=== PATIENT | male | born 1945 | race Two or more races ===

== ENCOUNTER → 2016-05-18 | Outpatient (CLI) | payer MEDICARE ==
--- NOTE | 2016-05-18 13:44 | RAD ---
Left lower extremity venous ultrasound, 05/18/2016: History: DVT, patient on blood thinners Duplex evaluation of the major deep veins in the left lower extremity was performed including grayscale, color-flow and spectral Doppler analysis. No previous studies are available at this time for comparison purposes. The left common femoral vein and the femoral vein in the upper left thigh are widely patent. There is occlusive thrombus in the femoral vein in the distal left thigh extending into the popliteal vein. Patent posterior tibial and peroneal veins are evident in the left calf. IMPRESSION: Occlusive thrombus in the left popliteal vein and in the inferior aspect of the left femoral vein. Presumably prior studies were performed elsewhere, and correlation with prior exams is suggested to determine if this represents interval improvement or progression of clot.
== END | disposition home or self-care (01) ==
LOC: US 12:41
PROVIDERS: ATTEND Internal Medicine
DX: I82.432 Acute embolism and thrombosis of left popliteal vein (principal)
CPT/HCPCS: 93971

== ENCOUNTER → 2016-06-20 | Outpatient (CLI) | payer MEDICARE ==
--- NOTE | 2016-06-20 15:29 | RAD ---
Left lower extremity venous ultrasound, 06/20/2016: History: Follow-up left DVT Duplex evaluation of the deep veins in the left lower extremity was performed including grayscale, color-flow and spectral Doppler analysis. The left common femoral and the the superficial femoral vein in the mid and upper portions of the left thigh are patent. In the distal left side there is occlusive thrombus in the femoral vein extending into the popliteal vein. This appears to be unchanged since 05/18/2016. Patent posterior tibial and peroneal veins are present in the left calf. IMPRESSION: Unchanged occlusive thrombus in the left popliteal vein and the inferior aspect of the left femoral vein.
== END | disposition home or self-care (01) ==
LOC: US 13:53
PROVIDERS: ATTEND Internal Medicine
DX: I80.202 Phlebitis and thrombophlebitis of unspecified deep vessels of left lower extremity (principal)
CPT/HCPCS: 93971

== ENCOUNTER 2021-05-27 14:10 | Emergency (ER) | payer MEDICARE ==
[~2021-05-27] VITALS: Ht 175.3 cm; Wt 82.2 kg
[2021-05-27] MEDS ORDERED: IV NORMAL SALINE 1000ML BAG 1,000 ML IV ONE (14:45)
[2021-05-27] MEDS ORDERED: MECLIZINE HCL 12.5 MG TABLET. PO ONE (14:45)
--- NOTE | 2021-05-27 14:47 | EKG ---
[facility] [address] [place] [id number] Test Date: 2021-05-27 Test Time: 14:25:42 Pat Name: GEENA TERRY Department: Room: Gender: M Physician Practice Manager: : [id number] Requested By: ALY BULLOCK Order Number: [id number] Reading MD: Rickie Ontiveros MD Measurements Intervals [place] Rate: 71 P: 235 MS: 190 QRS: 36 QRSD: 76 T: 54 QT: 360 QTc: 396 Interpretive Statements SINUS RHYTHM Electronically Signed On 05-28-2021 17:38:36 CDT by Rickie Ontiveros MD
[2021-05-27 14:50] LABS: BASO # 0.1 x10^3/uL (0.0-0.2); BASO % 1 % (0-3); EOS # 0.4 x10^3/uL (0.0-0.7); EOS % 4 % (0-3); HEMOGLOBIN 15.7 g/dL (13.0-17.5); LYMPH # 2.1 x10^3/uL (1.0-4.8); LYMPH % 21 % (24-48); MEAN CORPUSCULAR HEMOGLOBIN 30 pg (25-35); MEAN CORPUSCULAR HGB CONC 33 g/dL (31-37); MEAN CORPUSCULAR VOLUME 89 fL (79-100); MONO # 0.7 x10^3/uL (0.0-1.1); MONO % 7 % (0-9); NEUT # 6.9 x10^3/uL (1.8-7.7); NEUT % 68 % (31-73); PLATELET COUNT 303 x10^3/uL (140-400); WHITE BLOOD COUNT 10.1 x10^3/uL (4.0-11.0)
--- NOTE | 2021-05-27 14:52 | PHYS DOC ---
General Adult EDM: Chief Complaint: DIZZY/LIGHT HEADED HPI: HPI: Patient is a 75-year-old male who presents to the emergency department today for lightheadedness. Patient reports that he has had this lightheadedness Monday. At that time he saw his primary care provider. He reports that he also saw his primary care provider yesterday and was discharged with azithromycin. Patient reports that the lightheadedness occurs only with position changes and head movements. He reports that he has had some nasal congestion and drainage as well as ear pressure and tinnitus. Patient has a history of hyperlipidemia, diabetes and pulmonary embolism on Xarelto. Patient denies headache, nausea, vomiting, fevers, chest pain, shortness of breath. Review of Systems: Review of Systems: Constitutional: See HPI HENT: See HPI Respiratory: See HPI Cardiovascular: See HPI GI: D see HPI Neurologic: See HPI] Heart Score: C/O Chest Pain: No Risk Factors: Risk Factors: DM, Current or recent (<one month) smoker, HTN, HLP, family history of CAD, obesity. Risk Scores: Score 0 - 3: 2.5% MACE over next 6 weeks - Discharge Home Score 4 - 6: 20.3% MACE over next 6 weeks - Admit for Clinical Observation Score 7 - 10: 72.7% MACE over next 6 weeks - Early Invasive Strategies Current Medications: Current Medications Medications (Trade) Dose Ordered Sig/Raul Start Time Stop Time Status Last Admin Dose Admin Meclizine HCl (Antivert) 25 mg 1X ONCE 05/27/21 14:45 05/27/21 14:46 DC Sodium Chloride 1,000 ml @ 1,000 mls/hr 1X ONCE 05/27/21 14:45 05/27/21 15:44 Allergies: Allergies: Allergies Coded Allergies Type Severity Reaction Last Updated Verified No Known Drug Allergies 05/27/21 No Physical Exam: PE: Constitutional: Well developed, well nourished, no acute distress, non-toxic appearance. [] HENT: Normocephalic, atraumatic, bilateral external ears normal, tube in right ear, no erythema or excessive cerumen noted to bilateral internal ears, oropharynx moist, no oral exudates, nose normal. [] Eyes: PERRL, no nystagmus, 4 mm bilaterally, EOMI, conjunctiva normal, no discharge. [] Neck: Normal range of motion, no tenderness, supple, no stridor. [] Cardiovascular:Heart rate regular rhythm, no murmur [] Lungs & Thorax: Bilateral breath sounds clear to auscultation [] Abdomen: Bowel sounds normal, soft, no tenderness, no masses, no pulsatile masses. [] Skin: Warm, dry, no erythema, no rash. [] Back: Normal range of motion Extremities: No tenderness, no cyanosis, no clubbing, ROM intact, no edema. [] Neurologic: Alert and oriented X 3, normal motor function, normal sensory function, no focal deficits noted. [] Psychologic: Affect normal, judgement normal, mood normal. [] Current Patient Data: Labs: Laboratory Tests Test 05/27/21 14:32 05/27/21 15:15 White Blood Count 10.1 x10^3/uL Red Blood Count 5.30 x10^6/uL Hemoglobin 15.7 g/dL Hematocrit 47.0 % Mean Corpuscular Volume 89 fL Mean Corpuscular Hemoglobin 30 pg Mean Corpuscular Hemoglobin Concent 33 g/dL Red Cell Distribution Width 14.0 % Platelet Count 303 x10^3/uL Neutrophils (%) (Auto) 68 % Lymphocytes (%) (Auto) 21 % Monocytes (%) (Auto) 7 % Eosinophils (%) (Auto) 4 % Basophils (%) (Auto) 1 % Neutrophils # (Auto) 6.9 x10^3/uL Lymphocytes # (Auto) 2.1 x10^3/uL Monocytes # (Auto) 0.7 x10^3/uL Eosinophils # (Auto) 0.4 x10^3/uL Basophils # (Auto) 0.1 x10^3/uL Prothrombin Time 17.8 SEC Prothromb Time International Ratio 1.5 Activated Partial Thromboplast Time 43 SEC Sodium Level 137 mmol/L Potassium Level 4.5 mmol/L Chloride Level 101 mmol/L Carbon Dioxide Level 29 mmol/L Anion Gap 7 Blood Urea Nitrogen 24 mg/dL Creatinine 1.4 mg/dL Estimated GFR (Cockcroft-Gault) 49.3 BUN/Creatinine Ratio 17 Glucose Level 117 mg/dL Calcium Level 9.4 mg/dL Total Bilirubin 0.4 mg/dL Aspartate Amino Transf (AST/SGOT) 18 U/L Alanine Aminotransferase (ALT/SGPT) 20 U/L Alkaline Phosphatase 69 U/L Troponin I High Sensitivity 5 ng/L Total Protein 7.4 g/dL Albumin 4.3 g/dL Albumin/Globulin Ratio 1.4 SARS-CoV-2 Antigen (Rapid) Negative Current Medications Medications (Trade) Dose Ordered Sig/Raul Route PRN Reason Start Time Stop Time Status Last Admin Dose Admin Sodium Chloride 1,000 ml @ 1,000 mls/hr 1X ONCE IV 05/27/21 14:45 05/27/21 15:44 DC 05/27/21 14:56 Meclizine HCl (Antivert) 25 mg 1X ONCE PO 05/27/21 14:45 05/27/21 14:46 DC 05/27/21 14:56 Iohexol (Omnipaque 350 Mg/ml) 90 ml 1X ONCE IV 05/27/21 15:45 05/27/21 15:47 DC 05/27/21 16:12 Info (CONTRAST GIVEN -- Rx MONITORING) 1 each PRN DAILY PRN MC SEE COMMENTS 05/27/21 16:00 05/29/21 15:59 EKG: EKG: EKG performed by ER staff at 1425 shows sinus rhythm with a rate of 71, no STEMI read by Dr. Carbajal at 1427 [] Radiology/Procedures: Radiology/Procedures: []PROCEDURE: CT HEAD WO CONTRAST Exam: CT head INDICATION: Dizziness TECHNIQUE: Sequential axial images through the head were obtained without the administration of IV contrast. Exposure: One or more of the following in the visualized dose reduction techniques were utilized for this examination: 1. Automated exposure control 2. Adjustment of the MA and/or KV according to patient size 3. Use of iterative of reconstructive technique Comparisons: None FINDINGS: No focal parenchymal lesion or hemorrhage is identified. There is no midline shift or sulcal effacement. No acute vascular territory infarction is identified. Hudson-white distinction is preserved. The ventricular system is within normal limits without compression hydrocephalus. The basal cisterns are well maintained. The visualized portions of the paranasal sinuses and mastoid air cells are well- pneumatized. No acute fractures. IMPRESSION: No acute intracranial abnormality. Electronically signed by: Nadia Max MD (05/27/2021 4:01 PM) [facility] DICTATED and SIGNED BY: NADIA MAX MD DATE: 05/27/21 1549 PROCEDURE: CT ANGIOGRAPHY CHEST Exam Date: 05/27/2021 4:11 PM CTA CHEST Indication: Reason: dizziness, PE hx / Spl. Instructions: OMNI 350 INJ. 90 MLS / History: . TECHNIQUE: CT angiogram of the chest was performed following the administration of nonionic intravenous contrast for evaluation of pulmonary embolus. 3D MIPs were created and reviewed on an independent workstation to assist in diagnosis and clinical management. One or more of the following dose reduction techniques were utilized: *Automated exposure control (AEC) *Adjustment of mA and/or kV according to patient size *Use of iterative reconstruction technique *CT scan done according to ALARA, or ALARA/IMAGE GENTLY FINDINGS: There is slightly suboptimal opacification of the pulmonary arteries due to bolus timing. No definite central intravascular filling defects are appreciated. There is no definite evidence for central pulmonary embolus. The aorta is normal in caliber without evidence for dissection. Aortic calcifications are present. The heart is normal in size without pericardial effusion. Coronary artery calcifications are present. The visualized thyroid gland is within normal limits. No lymphadenopathy is seen. Patchy groundglass and reticular markings in the lungs likely represent subsegmental atelectasis, most prominent in the left upper lobe. There is a 2-3 mm noncalcified subpleural nodule at the periphery of the left lower lobe on image 93 series 3. Calcified granulomas in the lungs. The central airways are patent. There is no focal consolidation, pleural effusion or pneumothorax. Images of the upper abdomen demonstrate no focal abnormality. Degenerative changes are seen in the spine. IMPRESSION: Slightly suboptimal opacification of the pulmonary arteries due to bolus timing. No definite evidence for central pulmonary embolus, allowing for the limitations of the exam. Patchy subsegmental atelectasis in the lungs bilaterally. 2-3 mm noncalcified lung nodule on the left. According to the 2017 Fleischner Society Guidelines for Management of Incidental Pulmonary Nodules Detected on CT, for low risk patients (minimal or absent history of smoking or other known risk factors), non-calcified solid nodules less than or equal to 6 mm in diameter do not require routine follow up. If risk factors exist or the nodule has an upper lobe location, a follow up CT is optional in 12 months. If unchanged at that time, no further follow up is needed. Electronically signed by: Ander Colin MD (05/27/2021 4:32 PM) [facility] DICTATED and SIGNED BY: ANDER COLIN MD DATE: 05/27/21 1616 Course & Med Decision Making: Course & Med Decision Making Pertinent Labs and Imaging studies reviewed. (See chart for details) [] Patient presents to the emergency department today for lightheadedness with position changes and head movements. Patient had a negative head impulse test and does not have any nystagmus. Patient is reporting nasal congestion and tinnitus, he does have an ear tube in his right ear that has been in place for 9 years he reports. Work-up in the ER consisted of blood work including troponin, EKG, CT imaging of head due to his dizziness and blood thinner use. Patient may be experiencing orthostatic hypotension and is treated with IV fluids and effort. Static vital signs were obtained in the emergency department and these were negative. Blood work was unremarkable, troponin was 5. CT imaging of head showed no acute findings. CT angio of chest was performed as patient is reporting dizziness and has a PE history and this was negative for any pulmonary embolism. Following treatment in the emergency department with IV fluids and Antivert, patient reports that his dizziness has resolved. Patient was road tested in the emergency department was able to bear weight and ambulate with a steady gait without any dizziness. Patient will be discharged home with Antivert and advised to increase fluids. He will be given referral information for an ENT. I discussed with patient all findings and diagnostic testing as wel l as the need to follow-up with PCP for further evaluation and treatment or return to the ER if any new or worsening symptoms. Strict return precautions were also discussed at length. Patient voiced understanding and agreement with the plan. Patient is hemodynamically stable at the time of disposition. Letty Disclaimer: Letty Disclaimer: This electronic medical record was generated, in whole or in part, using a voice recognition dictation system. Departure Departure Impression: Primary Impression: Vertigo Disposition: 01 HOME / SELF CARE / HOMELESS Condition: GOOD Referrals: AL STEVENSON MD (PCP) Patient Instructions: Vertigo Additional Instructions: You are seen in this emergency department today for dizziness. You are likely experiencing symptoms of vertigo which is treated with Antivert. Please take this as directed. Increase your fluids as dehydration is a common cause of dizziness. Go home and rest. Follow-up with your primary care provider tomorrow regarding your ER visit. Your vertigo may be related to your ear problems and you will need to follow-up with an ENT regarding the ear tube that is in your right ear. Please follow-up with the ENT that was attached to your discharge paperwork. Return to the emergency department if you develop dizziness, syncope, intractable nausea or vomiting, chest pain, shortness of breath, severe headache, confusion, vision changes, speech changes, inability to walk, poor coordination or any new worsening concerns. Scripts Meclizine Hcl (MECLIZINE HCL) 25 Mg Tablet 1 TAB PO PRN TID for 7 Days, #21 TAB 0 Refills Prov: ALY BULLOCK APRN 05/27/21 ALY BULLOCK APRN May 27, 2021 14:52
[2021-05-27 15:01] LABS: CALCIUM 9.4 mg/dL (8.5-10.1); CREATININE 1.4 mg/dL (0.7-1.3); GFR 49.3; POTASSIUM 4.5 mmol/L (3.5-5.1)
[2021-05-27 15:04] LABS: PROTHROMBIN TIME PATIENT 17.8 SEC (11.7-14.0)
[2021-05-27 15:08] LABS: ALBUMIN 4.3 g/dL (3.4-5.0); ALBUMIN/GLOBULIN RATIO 1.4 (1.0-1.7); TOTAL BILIRUBIN 0.4 mg/dL (0.2-1.0); TOTAL PROTEIN 7.4 g/dL (6.4-8.2)
[2021-05-27] MEDS ORDERED: IOHEXOL 350 MG/ML 100 ML VIAL. IV ONE (15:45)
[2021-05-27] MEDS ORDERED: CONTRAST GIVEN. MC PRN (16:00)
--- NOTE | 2021-05-27 16:04 | RAD ---
Exam: CT head INDICATION: Dizziness TECHNIQUE: Sequential axial images through the head were obtained without the administration of IV co ntrast. Exposure: One or more of the following in the visualized dose reduction techniques were utilized for this examination: 1. Automated exposure control 2. Adjustment of the MA and/or KV according to patient size 3. Use of iterative of reconstructive technique Comparisons: None FINDINGS: No focal parenchymal lesion or hemorrhage is identified. There is no midline shift or sulcal effaceme nt. No acute vascular territory infarction is identified. Hudson-white distinction is preserved. The ventricular system is within normal limits without compression hydrocephalus. The basal cisterns are well maintained. The visualized portions of the paranasal sinuses and mastoid air cells are well-pneumatized. No acute fractures. IMPRESSION: No acute intracranial abnormality. Electronically signed by: Nadia Montiel MD (05/27/2021 4:01 PM) [facility]
--- NOTE | 2021-05-27 16:34 | RAD ---
Exam Date: 05/27/2021 4:11 PM CTA CHEST Indication: Reason: dizziness, PE hx / Spl. Instructions: OMNI 350 INJ. 90 MLS / History: . TECHNIQUE: CT angiogram of the chest was performed following the administration of nonionic intrave nous contrast for evaluation of pulmonary embolus. 3D MIPs were created and reviewed on an [employer] workstation to assist in diagnosis and clinical management. One or more of the following dose red uction techniques were utilized: *Automated exposure control (AEC) *Adjustment of mA and/or kV according to patient size *Use of iterative reconstruction technique *CT scan done according to ALARA, or ALARA/IMAGE GENTLY FINDINGS: There is slightly suboptimal opacification of the pulmonary arteries due to bolus timing. No definit e central intravascular filling defects are appreciated. There is no definite evidence for central p ulmonary embolus. The aorta is normal in caliber without evidence for dissection. Aortic calcifications are present. The heart is normal in size without pericardial effusion. Coronary artery calcifications are present . The visualized thyroid gland is within normal limits. No lymphadenopathy is seen. Patchy groundglass and reticular markings in the lungs likely represent subsegmental atelectasis, mos t prominent in the left upper lobe. There is a 2-3 mm noncalcified subpleural nodule at the periphery of the left lower lobe on image 93 series 3. Calcified granulomas in the lungs. The central airways are patent. There is no focal consolidation, pleural effusion or pneumothorax. Images of the upper abdomen demonstrate no focal abnormality. Degenerative changes are seen in the s pine. IMPRESSION: Slightly suboptimal opacification of the pulmonary arteries due to bolus timing. No definite evidenc e for central pulmonary embolus, allowing for the limitations of the exam. Patchy subsegmental atelectasis in the lungs bilaterally. 2-3 mm noncalcified lung nodule on the left. According to the 2017 Fleischner Society Guidelines for Management of Incidental Pulmonary Nodules Detected on CT, for low risk patients (minimal or absent history of smoking or other known risk factors), non-calcified solid nodules less than or equal to 6 mm in diameter do not require routine follow up. If risk factors exist or the nodule has an upper lob e location, a follow up CT is optional in 12 months. If unchanged at that time, no further follow up is needed. Electronically signed by: Chapito Colin MD (05/27/2021 4:32 PM) [facility]
[2021-05-27] MEDS ORDERED: MECL-75 PO (17:40)
[2021-05-27 17:46] VITALS: BP 156/81
== END 2021-05-27 17:57 | disposition home or self-care (01) ==
LOC: ER 14:10
DX: R42 Dizziness and giddiness (principal); R09.81 Nasal congestion; Z20.822 Contact with and (suspected) exposure to COVID-19
CPT/HCPCS: 36415; 70450; 71275; 80053; 84484; 85025; 85610; 85730; 87426; 93005; 96360; 99285; J7030; J8597; Q9967